=== PATIENT | male | born 1970 | race Caucasian/White ===

== ENCOUNTER 2018-05-04 11:22 | Outpatient (CLI) | payer OTHER ==
[~2018-05-04] VITALS: Ht 177.8 cm; Wt 166.0 kg
[2018-05-04 11:34] VITALS: BP 135/89
[2018-05-04] MEDS ORDERED: CYAN100088 PO (12:04)
[2018-05-04] MEDS ORDERED: CHOL10008 PO (12:04)
[2018-05-04] MEDS ORDERED: VENL150T PO (12:04)
[2018-05-04] MEDS ORDERED: PANT40TA3 PO (12:04)
[2018-05-04] MEDS ORDERED: LISI-552 PO (12:04)
[2018-05-04] MEDS ORDERED: CARV6.252 PO (12:04)
== END 2018-05-04 11:50 | disposition home or self-care (01) ==
LOC: PREOP 11:22
PROVIDERS: ATTEND Orthopaedic Surgery Orthopaedic Trauma
DX: Z01.818 Encounter for other preprocedural examination (principal)
CPT/HCPCS: 87081

== ENCOUNTER 2018-05-07 07:11 | Inpatient (IN) | payer OTHER ==
[~2018-05-07] VITALS: Ht 177.8 cm; Wt 166.0 kg
[~2018-05-07 07:11] MED LIST: CARV6.252 PO; CHOL10008 PO; CYAN100088 PO; LISI-552 PO; PANT40TA3 PO; VENL150T PO
[2018-05-07 07:25] VITALS: BP 132/92
[2018-05-07] MEDS ORDERED: ceFAZolin 2 GM IV Premixed 50 ML IV ONE (07:30)
[2018-05-07] MEDS: LACTATED RINGERS 1,000 ML IV PRN ×2 (07:30→10:30)
[2018-05-07] MEDS ORDERED: LIDOCAINE PF 2% 5 ML (XYLOCAINE) VIAL ONE ×2 (08:22→13:11)
[2018-05-07] MEDS ORDERED: DEXMEDETOMIDINE 200 MCG/2 ML (PRECEDEX) VIAL IV ONE ×2 (08:22→13:11)
[2018-05-07] MEDS ORDERED: ONDANSETRON 4 MG/2 ML (SDV) Z0FRAN ONE (08:22)
[2018-05-07] MEDS ORDERED: DEXAMETHASONE 10 MG/ML (DECADRON) 1 ML VIAL ONE ×2 (08:22→12:42)
[2018-05-07] MEDS ORDERED: SUCCINYLCHOLINE INJ 100 MG/5 ML SYR ONE (08:22)
[2018-05-07] MEDS ORDERED: proPOfol 200 MG/20 ML (DIPRIVAN) VIAL IV ONE (08:22)
[2018-05-07] MEDS ORDERED: fentaNYL INJECTION 100 MCG/2 ML AMP ONE ×4 (08:22→12:41)
[2018-05-07] MEDS ORDERED: MIDAZOLAM 2 MG/2 ML (VERSED) VIAL ONE (08:23)
[2018-05-07] MEDS ORDERED: SEVOFLURANE (ULTANE) 15 ML INHAL SOLN ONE ×15 (08:35→12:52)
[2018-05-07] MEDS ORDERED: ROCURONIUM 10 MG/ML 5 ML SYRINGE IV ONE (08:35)
[2018-05-07] MEDS ORDERED: BUP/EPI 0.5% 1:200,000 (SENSORCAINE) 30 ML VIAL ONE (09:22)
[2018-05-07] MEDS ORDERED: methylPREDNISolone 40 MG/ML (DEPO MEDROL) VIAL ONE (12:01)
[2018-05-07] MEDS ORDERED: hydrALAZINE (APESOLINE) 20 MG/ML VIAL ONE (12:42)
[2018-05-07] MEDS ORDERED: D5 LR IV SOLUTION 1,000 ML IV SCH (13:15)
[2018-05-07] MEDS ORDERED: morphine INJ 10 MG/ML 1ML (SYR OR VIAL) IM PRN (13:15)
[2018-05-07] MEDS ORDERED: PROMETHAZINE 25 MG (PHENERGAN) TAB PO PRN (13:15)
[2018-05-07] MEDS ORDERED: ONDANSETRON 4 MG/2 ML (SDV) Z0FRAN IV PRN (13:15)
[2018-05-07] MEDS ORDERED: BISACODYL 5 MG (DULCOLAX) TABLET PO PRN (13:15)
[2018-05-07] MEDS ORDERED: ACETAMINOPHEN 325 MG TABLET PO PRN (13:15)
[2018-05-07] MEDS ORDERED: DOCUSATE SODIUM 100 MG (COLACE) CAP PO PRN (13:15)
--- NOTE | 2018-05-07 13:26 | Progress Note-Post Operative ---
Post-Operative Progess Note Surgeon (s)/Woodworking Machine Feeder (s) Surgeon BELLE MILLER DO Woodworking Machine Feeder: Karthikeyan Michael PA-C Pre-Operative Diagnosis Cervical spondylosis C5-6, C6-7 with radiculopathy Post-Operative Diagnosis Same Procedure & Operative Findings Date of Procedure 05/07/18 Procedure Performed/Findings C5-6, C6-7 ACDF Anesthesia Type GETA Estimated Blood Loss Estimated blood loss (mL): 150 mL Specimens/Packing Specimens Removed None Packing: Drains: 7 F JPD Complications: None Disposition: stable, to PACU BELLE MILLER DO May 07, 2018 13:26
[2018-05-07] MEDS ORDERED: morphine INJ 10 MG/ML 1ML (SYR OR VIAL) IVP ONE (13:30)
[2018-05-07] MEDS ORDERED: ONDANSETRON 4 MG/2 ML (SDV) Z0FRAN IVP PRN (13:30)
[2018-05-07] MEDS ORDERED: HYDROmorphone 2 MG/ML VIAL (DILAUDID) IV ONE (13:30)
--- NOTE | 2018-05-07 13:43 | Diagnostic Imaging Report ---
Indication: Fluoroscopy during cervical spine surgery. Fluoroscopy was provided in the OR during cervical surgery. 36 seconds of fluoroscopy was utilized. Crosstable lateral view does show localizing needle anteriorly at approximately C5-6 level. There has been placement of anterior plate and numerous screws. Impression: Fluoroscopy during ACDF. Dictated by: Dictated on workstation # [id number]
[2018-05-07] MEDS ORDERED: morphine INJ 10 MG/ML 1ML (SYR OR VIAL) ONE (14:02)
--- NOTE | 2018-05-07 14:27 | Anesthesia-General Post-Op ---
General Patient Condition Mental Status/LOC: Same as Preop Cardiovascular: Satisfactory Nausea/Vomiting: Absent Respiratory: Satisfactory Pain: Controlled Complications: Absent Post Op Complications Complications None Follow Up Care/Instructions Patient Instructions None needed. Anesthesia/Patient Condition Patient Condition Patient is doing well, no complaints, stable vital signs, no apparent adverse anesthesia problems. No complications reported per nursing. LA ZULUAGA CRNA May 07, 2018 14:26
[2018-05-07] MEDS ORDERED: VENL150C98 PO (15:23)
[2018-05-07] MEDS ORDERED: CHOL10007 PO (15:23)
[2018-05-07] MEDS ORDERED: morphine INJ 4 MG/ML 1 ML (VIAL/SYRINGE) IV PRN (15:45)
[2018-05-07] MEDS: D5 LR IV SOLUTION 1,000 ML IV SCH (15:45)
[2018-05-07 16:37] VITALS: BP 100/59
[2018-05-07] MEDS: CYCLOBENZAPRINE 10 MG (FLEXERIL) TAB PO PRN (17:00)
[2018-05-07] MEDS: ceFAZolin INJECTION 3,000 MG in NS (IVPB) 50 ML IV SCH (17:00)
[2018-05-07] MEDS: DEXAMETHASONE 4 MG/ML SDV (DECADRON) IV SCH (17:46)
[2018-05-07] MEDS ORDERED: FLU QUADRIvalent (5+ YOA) 2018-2019 (AFLURIA) 0.5 ML IM ONE (18:30)
[2018-05-07 19:14] VITALS: BP 110/68
[2018-05-07 19:17] VITALS: BP 110/68
[2018-05-07] MEDS: oxyCODONE/APAP 5/325MG (PERCOCET 5) TABLET PO PRN (22:18)
[2018-05-08] MEDS: DEXAMETHASONE 4 MG/ML SDV (DECADRON) IV SCH ×3 (00:01→12:45)
[2018-05-08] MEDS: D5 LR IV SOLUTION 1,000 ML IV SCH ×2 (00:05→16:44)
[2018-05-08] MEDS: ceFAZolin INJECTION 3,000 MG in NS (IVPB) 50 ML IV SCH ×2 (00:17→09:25)
[2018-05-08 00:19] VITALS: BP 137/71
[2018-05-08 04:08] VITALS: BP 134/70
[2018-05-08] MEDS: MULTIVIT W/MINERALS TAB (THERAGRAN M) PO SCH (06:26)
[2018-05-08 08:00] VITALS: BP 135/79
--- NOTE | 2018-05-08 08:03 | Progress Note-Standard ---
Standard Progress Note Progress Notes/Assess & Plan Date Seen by a Provider: May 08, 2018 Time Seen by a Provider: 07:57 Progress/Assessment & Plan Pt LUIZ, pain controlled, c/o some numbness/parasthesias ulnar aspect of Left hand and medial aspect of LLE, otherwise doing well, no overnight issues to report. VSSAF Labs stable Exam: decreased SLT ulnar N distribution L hand/L4 distribution LLE, otherwise SLT b/ l UE/LE 5/5 motor function b/l UE/LE, CN II-XII grossly intact C-collar in place, neck supple, dressing c/d/i, good phonation, trachea midline CV: RRR, good peripheral pulses Abd: soft/NT all 4 quadrants, no distention Pulm: breathing well on RA, no use of accessory muscles A/P: S/P C5-6, C6-7 ACDF, POD #1 sensory changes secondary to OR positioning; I encouraged the patient that this will resolve. Mobilize OOB with PT/OT, cervical fusion protocol C-collar at all times Current pain control regimen Bowel regimen ISB/SCDs Soft diet D/C planning: will plan to d/c home later today vs tomorrow morning Questions answered Instructions given BELLE MILLER DO May 08, 2018 08:03
[2018-05-08] MEDS ORDERED: OXYC1TAB87 PO (08:06)
[2018-05-08] MEDS ORDERED: CYCL10TA9 PO (08:06)
--- NOTE | 2018-05-08 08:38 | Physical Therapy Evaluation ---
PT Evaluation-General Medical Diagnosis Admission Date May 07, 2018 at 07:11 Medical Diagnosis: cervical spondylosis Onset Date: May 07, 2018 Therapy Diagnosis Therapy Diagnosis: debility Height/Weight Height (Feet): 5 Height (Inches): 10.00 Weight (Pounds): 366 Weight (Ounces): 0.0 Precautions Precautions/Isolations: Standard Precautions Weight Bear Status Right Lower Extremity: Right Full Weight Bearing Left Lower Extremity: Left Full Weight Bearing Referral Physician: Guillermo Reason for Referral: Evaluation/Treatment Medical History Pertinent Medical History: HTN Current History s/p C5-6,C6-7 ACDF Reviewed History: Yes Social History Home: Single Level Current Living Status: Spouse Prior/Core FIM Prior Level of Function Functional [place] Measure 0=Not Assessed/NA 4=Minimal Assistance 1=Total Assistance 5=Supervision or Setup 2=Maximal Assistance 6=Modified [place] 3=Moderate Assistance 7=Complete IndependenceIRFPAI Quality Coding Scale 6 Independent with activity with or without an assistive device 5 Patient requires set up or clean up by helper. Patient completes activity by themselves 4 Supervision or touching assist (CGA). [place] provide cues , steadying assist 3 The helper provides less than half the effort to complete the activity 2 The helper provides more than half the effort to complete the activity 1 Dependent. The helper does all the effort to complete an activity 7 Patient refused to complete or attempt activity 9 The patient did not perform the activity before the current illness or injury 88 Not attempted due to Medical conditions or safety concerns Bed Mobility: 7 Transfers (B,C,W/C) (FIM): 7 Gait: 7 PT Evaluation-Current Subjective Patient c/o left UE numbness and left LE numbness at the knee. Dr. Li in for assessment. Pain Numeric Pain Scale: 5-Moderate Pain Location: Incisional Location Body Site: Neck Pain Description: Acute Objective Patient Orientation: Normal For Age Attachments: Drains ROM/Strength ROM Lower Extremities bilateral LE WFL Strength Lower Extremities 5/5 grossly bilaterally Integumentary/Posture Integumentary refer to nursing notes Transfers Functional [place] Measure 0=Not Assessed/NA 4=Minimal Assistance 1=Total Assistance 5=Supervision or Setup 2=Maximal Assistance 6=Modified [place] 3=Moderate Assistance 7=Complete [place] Transfers (B, C, W/C) (FIM): 6 Scootin Rollin Supine to/from Sit: 6 Sit to/from Stand: 6 Gait Mode of Locomotion: Walk Anticipated Mode of Locomotion: Walk Gait (FIM): 6 Distance (FIM): 3=150 ft Distance: 225' Gait Level of Assist: 6 Gait Assistive Device: FWW Comments/Gait Description steady, safe, functional (PT instructed patient, family and RN to ambulate PRN in hallway) Balance Sitting Static: Normal Sitting Dynamic: Normal Standing Static: Normal Standing Dynamic: Normal Assessment/Needs 47 y.o. male, is currently at [facility] with gross motor skills. Plan dismissal to home on this date per Dr. Li. PT to dismiss patient from services due to current, safe, LOF. Rehab Potential: Good PT Plan Treatment/Plan Treatment Plan: Discontinue PT, goals met Treatment Plan: Other Treatment Duration: May 08, 2018 Frequency: 1 time per week Estimated Hrs Per Day: .5 hour per day Patient and/or Family Agrees t: Yes Discharge Recommendations Therapy D/C Recommendations: Home w/ Family Support Time/GCodes Time In: 741 Time Out: 800 Total Billed Treatment Time: 19 Total Billed Treatment 1 visit [facility] 19 min G Codes Necessary: No VIJAY BENDER PT May 08, 2018 08:38
[2018-05-08] MEDS ORDERED: MILK OF MAGNESIA 400 MG/5 ML 30 ML UDC PO SCH (09:00)
--- NOTE | 2018-05-08 09:03 | Occupational Therapy Eval ---
OT Evaluation-General/PLF Medical Diagnosis Admission Date May 07, 2018 at 07:11 Medical Diagnosis: cervical spondylosis Onset Date: May 07, 2018 Therapy Diagnosis Therapy Diagnosis: Debilty Height/Weight Height (Feet): 5 Height (Inches): 10.00 Weight (Pounds): 366 Weight (Ounces): 0.0 Precautions Precautions/Isolations: Standard Precautions Weight Bear Status Weight Bearing Restriction: Weight Bearing/Tolerated Referral Physician: Guillermo Referral Reason: Evaluation/Treatment Medical History Pertinent Medical History: HTN Additional Medical History s/p C5-6, C6-7 ACDF Social History Home: Single Level Current Living Status: Spouse ADL-Prior Level of Function Functional [place] Measure 0=Not Assessed/NA 4=Minimal Assistance 1=Total Assistance 5=Supervision or Setup 2=Maximal Assistance 6=Modified [place] 3=Moderate Assistance 7=Complete [place] ADL PLOF Comments Pt reports that he was totally independent with all self cares and IADLs prior to recent surgery. Self Care Self Care: (Code the patient's need for assistance with bathing, dressing, using the toilet, or eating prior to the current illness, exacerbation, or injury.) Functional Cognition Functional Cognition: (Code the patient's need for assistance with planning regular tasks, such as shopping or remembering to take medicaiton prior to the current illness, exacerbation, or injury.) Drive Self: Yes OT Current Status Subjective Pt alert and oriented, agreeable to OT evaluation. Pt reports that he will be discharging to home with his significant other either today or tomorrow. Pain Numeric Pain Scale: 4 Location: Incisional Location Body Site: Neck Pain Description: Dull Mental Status/Objective Patient Orientation: Normal For Age Attachments: Drains, Rodas Catheter Current Upper Extremity ROM WFL Upper Extremity Coordination BUE strength and gross/fine motor coordination intact. Pt reports some numbness on ulnar aspect of left hand, likely related to recent cervical surgery. Did not assess pt's UE strength due to cervical precautions following spinal surgery. ADL-Treatment Functional [place] Measure 0=Not Assessed/NA 4=Minimal Assistance 1=Total Assistance 5=Supervision or Setup 2=Maximal Assistance 6=Modified [place] 3=Moderate Assistance 7=Complete IndependenceIRFPAI Quality Coding Scale 6 Independent with activity with or without an assistive device 5 Patient requires set up or clean up by helper. Patient completes activity by themselves 4 Supervision or touching assist (CGA). [place] provide cues , steadying assist 3 The helper provides less than half the effort to complete the activity 2 The helper provides more than half the effort to complete the activity 1 Dependent. The helper does all the effort to complete an activity 7 Patient refused to complete or attempt activity 9 The patient did not perform the activity before the current illness or injury 88 Not attempted due to Medical conditions or safety concerns Upper Body Dressing (FIM): 5 Lower Body Dressing (FIM): 5 Toileting (FIM): 5 Toilet/Commode Transfer (FIM): 5 Education OT Patient Education: Correct positioning, Energy conservation, Home exercise program, Modified ADL techniques, Reviewed precautions, Safety issues, Transfer techniques, Use of adapted equipment Teaching Recipient: Patient Teaching Methods: Demonstration, Discussion Response to Teaching: Verbalize Understanding, Return Demonstration OT Short Term Goals Short Term Goals Time Frame: May 08, 2018 Upper Body Dressing(FIM): 5 Lower Body Dressing(FIM): 5 Toileting(FIM): 5 Transfers (B,C,W/C) (FIM): 5 Toilet/Commode Transfer(FIM): 5 1=Demonstrate adherence to instructed precautions during ADL tasks. 2=Patient will verbalize/demonstrate understanding of assistive devices/ modifications for ADL. 3=Patient will improve strength/tolerance for activity to enable patient to perform ADL's. OT Crew Supervisor Goals Skilled Nursing Goals Time Frame: May 08, 2018 Upper Body Dressing(FIM): 5 1=Demonstrate adherence to instructed precautions during ADL tasks. 2=Patient will verbalize/demonstrate understanding of assistive devices/ modifications for ADL. 3=Patient will improve strength/tolerance for activity to enable patient to perform ADL's. OT Education/Plan Problem List/Assessment Assessment: No Skilled OT Needs ID'd Discharge Recommendations Plan/Recommendations: Discharge/Goals Met Therapy D/C Recommendations: 24 hr Supervision, Home w/ Family Support Equpiment Recommendations-D/C: Account Development Representative, Sock Aide, Dressing Stick Treatment Plan/Plan of Care Treatment,Training & Education: Yes Patient would benefit from OT for education, treatment and training to promote independence in ADL's, mobility, safety and/or upper extremity function for ADL' s. Treatment Duration: May 08, 2018 Frequency: 1 time per week Estimated Hrs Per Day: .5 hour per day Rehab Potential: Good Time/GCodes Start Time: 08:40 Stop Time: 09:10 Total Time Billed (hr/min): 30 Billed Treatment Time EVM1, ADL1 JUSTINE GIMENEZ OT May 08, 2018 09:02
[2018-05-08] MEDS: CYCLOBENZAPRINE 10 MG (FLEXERIL) TAB PO PRN (12:45)
[2018-05-08 16:40] VITALS: BP 133/69
[2018-05-08] MEDS: oxyCODONE/APAP 5/325MG (PERCOCET 5) TABLET PO PRN (22:03)
[2018-05-09] VITALS: BP 136/74
[2018-05-09] MEDS: MULTIVIT W/MINERALS TAB (THERAGRAN M) PO SCH (06:24)
[2018-05-09 08:00] VITALS: BP 155/91
--- NOTE | 2018-05-09 10:03 | Progress Note-Standard ---
Standard Progress Note Progress Notes/Assess & Plan Date Seen by a Provider: May 09, 2018 Time Seen by a Provider: 10:00 Progress/Assessment & Plan Pt LUIZ, pain controlled, numbness/parasthesias ulnar aspect of Left hand and medial aspect of LLE nearly resolved, no overnight issues to report, doing well without complaints. VSSAF Labs stable Exam: improved SLT ulnar N distribution L hand, otherwise SLT b/l UE/LE 5/5 motor function b/l UE/LE, CN II-XII grossly intact C-collar in place, neck supple, dressing c/d/i, good phonation, trachea midline CV: RRR, good peripheral pulses Abd: soft/NT all 4 quadrants, no distention Pulm: breathing well on RA, no use of accessory muscles A/P: S/P C5-6, C6-7 ACDF, POD #2 Orthopedically stable Mobilize OOB with PT/OT, cervical fusion protocol C-collar at all times Current pain control regimen Bowel regimen Remove JPD/change dressing today per nursing ISB/SCDs D/C planning: d/c to home today Questions answered Instructions given F/U outpatient in 2 weeks BELLE MILLER DO May 09, 2018 10:03
--- NOTE | 2018-05-09 10:09 | Discharge Summary ---
Diagnosis/Chief Complaint Date of Admission May 07, 2018 at 07:11 Date of Discharge 05/09/2018 Discharge Time: 10:04 Admission Diagnosis Admission Diagnosis Cervical spondylosis with radiculopathy Discharge Diagnosis Same Reason Hospital Visit Surgery Discharge Summary Hospital Course Hospital Course Patient a 47 y/o RHD male with h/o chronic axial neck pain and progressive radiculopathy of the LUE. He was admitted to the hospital on 05/07/2018 and underwent successful C5-6, C6-7 ACDF. He tolerated the procedure well without complications. He was later admitted to the floor in stable condition. He received the appropriate antibiotic/VTE prophylaxis and standard pain control protocol. He mobilized well OOB with PT/OT. His labs/vitals remained stable throughout his hospital course. He remained n/v/i throughout the hospital course as well. He completed his hospital course without adverse events. He was discharged to home in medically and orthopedically stable condition. He received specific post-discharge instructions. All of his questions were answered prior to discharge. Procedures C5-6, C6-7 ACDF Discharge Physical Examination Allergies: Coded Allergies: No Known Drug Allergies (Unverified , 05/04/18) Vitals & I&Os Vital Signs Date Time Temp Pulse Resp B/P (MAP) Pulse Ox O2 Delivery O2 Flow Rate FiO2 05/09/18 08:00 97.6 90 20 155/91 (112) 96 Room Air 05/08/18 08:12 3.00 General Appearance: Alert, Oriented X3, No Acute Distress HEENT: Atraumatic, PERRLA, EOMI, Mucous Memb Moist/[place] Respiratory: Normal Air Movement Cardiovascular: Regular Rate Abdominal: Soft, No Tenderness Extremities: No Edema, Normal Pulses, No Tenderness/Swelling Skin: No Rashes, No Significant Lesion Neuro: Normal Gait, Normal Speech, Strength at 5/5 X4 Ext, Normal Tone, Sensation Intact, Cranial Nerves 3-12 NL, Reflexes 2+ Psych/Mental Status: Mental Status NL Discussion & Recommendations No bending/twisting/overhead activities. No lifting more than 10-15 lbs. May shower but no baths/soaking tubs. Wear C-collar as instructed. Follow up outpatient in 2 weeks. Call the office with additional questions/concerns. Discharge Home Medications Reviewed and agree with Discharge Medication list on patient's Discharge Instruction sheet Condition at Discharge Stable Instructions to Patient/Family Please see electronic discharge instructions given to patient. BELLE MILLER DO May 09, 2018 10:09
--- NOTE | 2018-05-09 10:14 | Discharge Inst-Surgical ---
Discharge Inst-Surgical Depart Medication/Instructions New, Converted or Re-Newed RX: RX on Chart Consults/Follow Up Goal/Follow Up Appt.: Follow up outpatient in 2 weeks. Please call the office to confirm your appoitment. Activity Activity as Tolerated: Yes No bending/twisting or overhead activities No lifting more than 10-15 lbs C-collar as instructed Activity Instructions: Avoid Pulling & Pushing, Avoid Stress to Incision Do Not Lift Over _ Pounds: 10 Driving Instructions: No Driving/Refer to Dr. Shaw Discharge Diet: No Restrictions Skin/Wound Care Infection Signs and Symptoms: Increased Redness, Foul Odor of Wound, Increased Drainage, Increased Swelling, Temperature Above 101 F Bathing Instructions: Shower Steristrips: Leave Steristrips Intact BELLE MILLER DO May 09, 2018 10:14
[2018-05-09 11:17] VITALS: BP 155/91
--- NOTE | 2018-05-16 15:21 | OPERATIVE REPORT ---
DATE OF SERVICE: 05/07/2018 PREPROCEDURE DIAGNOSES: 1. Osseous and soft tissue cervical spinal stenosis. 2. Cervical spondylosis with radiculopathy. POSTPROCEDURE DIAGNOSES: 1. Osseous and soft tissue cervical spinal stenosis. 2. Cervical spondylosis with radiculopathy. PROCEDURE PERFORMED: 1. Diskectomies at C5-6 and C6-7. 2. Application of anterior titanium interbody devices at C5-6 and C6-7. 3. Anterior cervical fusion C5-6, C6-7. 4. Anterior internal fixation C5-6, and C6-7. 5. Use of local bone autograft. 6. Use of human allograft. 7. Use of continuous neural monitoring for SSEPs, MEPs, and EMGs. IMPLANTS USED: 1. 4Web cervical interbody cages, size 17 mm x 14 mm x 8 mm with 7 degree lordosis at C5-6 and size 17 mm x 14 mm x 8 mm with zero degrees of lordosis at C6-7. 2. K2M [place] anterior cervical plate size 46 mm. ATTENDING SURGEON: Dr. Belle Li APARTMENT COMMUNITY MANAGER: Karthikeyan Michael PA-C; Mr. Michael's assistance was required secondary to the complexity of the case, to hold the necessary retractors protecting vital neurovascular structures and to increase the efficiency and efficacy of the case; this case was not possible without the presence of an entry level assistant manager. ANESTHESIA: General endotracheal. ESTIMATED BLOOD LOSS: 50 mL. COMPLICATIONS: None. SPECIMENS: None. DRAINS: A 7-[place] DANNY drain. BRIEF HISTORY/INDICATIONS: The patient is a very pleasant 47-year-old right-hand dominant male with a history of chronic progressive axial neck pain and left upper extremity radiculopathy. Imaging studies that were reviewed preoperatively including plain radiographs and a cervical MRI demonstrated severe cervical spondylosis at C5-6 and C6-7 as well as severe left-sided neural foraminal stenosis. On exam, preoperatively the patient did have both sensory and motor deficits in the C6 and C7 dermatomal distributions. I discussed the patient's condition in detail preoperatively including the natural history, prognosis, and treatment options. Given that his condition had become severe, progressive, and debilitating, and had failed to respond appropriately to conservative measures, I had recommended surgery. We discussed the surgical plan preoperatively in detail including the potential risks, benefits, potential complications, expected outcomes, and indications. Those risks that were discussed included significant bleeding, infection, spinal fluid leaks, damage to surrounding neurovascular and soft tissue structures, paralysis, potential serious reactions to anesthesia, pseudarthrosis, and potential need for secondary surgical procedures. The patient gave informed written consent to proceed as planned after all of his questions were answered to his satisfaction. PROCEDURE NOTE: After correctly identifying the patient as Mr. Mauricio Sanchez in the preoperative holding area and after his operative site was appropriately marked, he was transferred to the operating room. Once in the operating room, he had successful induction of General endotracheal anesthesia and he was transferred to a radiolucent OR table and placed in the supine position. All bony prominences were meticulously padded. Soft bump was placed underneath the scapula to maintain neutral rotation of the cervical spine. Both shoulders were taped distally to facilitate lateral C-arm imaging. The operative site was then prepped and draped in the routine sterile fashion. Prior to beginning the case, we completed an operating room timeout with all parties involved in the case and agreement and verified appropriate infusion of prophylactic antibiotics. Using a lateral C-arm image and a #4 Matheson elevator, the C5-6 and C6-7 disk spaces were localized and marked out on the skin with a sterile marking pen. Standard left-sided anterior cervical approach was then completed. A 10 blade scalpel was used to make an incision incising through the skin and subcutaneous tissue. Blunt Metzenbaum scissors were then used to divide the platysma muscle longitudinally just medial to the medial border of the sternocleidomastoid. Blunt digital dissection was then used to dissect medial to the carotid sheath until the anterior cervical spine was palpated. Hand-held Cloward retractor was then used to retract the trachea and esophagus laterally, so as to expose the prevertebral fascia. The prevertebral fascia was then released using blunt Metzenbaum scissors to expose the anterior cervical spine. A disk marker was then placed into the C5-6 disk space and then a lateral C-arm image was used to confirm that indeed the marker was in the C5-6 disk space. We began the procedure by starting at the C6-7 level and working cranially. The longus colli muscles were released bilaterally to the level of the uncovertebral joints from C5-C7. Self-retaining Shadow-Line retractor was then placed into the wound to retract and protect the soft tissues. 14 mm [place] pins were then placed into the vertebral bodies of C6 and C7 and then distraction was created across the C6-7 disk space. A 15 blade scalpel was then used to make an annulotomy in the C6-7 disk and then complete diskectomy was then completed using high speed bur as well as a series of curettes, pituitary rongeurs, and Kerrison rongeurs. Posterior osteophytes were then removed with a high speed mayank and Kerrison rongeurs. Posterior longitudinal ligament was then completely released and then bilateral foraminotomies were completed with a high speed bur and #2 Kerrison rongeurs. Adequate foraminotomy was confirmed with use of a nerve hook that was freely mobile in and out of the foramen bilaterally. We then began trialing for the interbody implant to the final size. Appropriate implant was selected. The final interbody implant was then packed full of local bone autograft and human allograft. The endplates were then lightly decorticated with high speed bur to bleeding bone all the while protecting the integrity of the bony endplates. The final implant was then tapped into the C6-7 disc space into the appropriate position using lateral C-arm guidance, just to complete the interbody fusion portion of the procedure at C6-7. We then turned our attention to the C5-6 disk space. [place] pins were repositioned and then distraction was created across the C5-6 disk space. A #15 blade scalpel was then used to make an annulotomy in the C5-6 disk and then complete diskectomy was completed using a high speed bur as well as a series of curettes, Pituitary and Kerrison rongeurs. Posterior osteophytes were removed with high speed bur and Kerrison rongeurs. Posterior longitudinal ligament was completely released and then bilateral foraminotomies were completed using high speed bur and #2 Kerrison rongeurs. Adequate foraminotomy was confirmed with use of a nerve hook that was freely mobile in and out of the foramen bilaterally. We then trialled for the interbody implant until this appropriate size implant was selected. The final implant was then packed full of local bone autograft and human allograft, the endplates were then lightly decorticated with high speed bur and then the final implant was inserted into the C5-C6 disk space into the appropriate position under lateral C-arm fluoroscopic guidance. This completed the interbody fusion portion of the case at C5-6. Anterior internal fixation was then applied with use of the K2M [place] anterior cervical plate and screws in the standard fashion. This was also completed under lateral C-arm fluoroscopic guidance. Once anterior internal fixation was applied, we confirmed that there was no soft tissue impingement of the plate. A final lateral and AP C-arm images confirmed that all the hardware and instrumentation was in the appropriate position and that acceptable alignment of the cervical spine was maintained. The wound was then irrigated with copious amounts of sterile saline, meticulous hemostasis was achieved, and then the 7-[place] DANNY drain was then placed into the wound. Standard closure was then completed using 3-0 Vicryl for the platysma muscle, 3-0 Vicryl for the subcutaneous tissue, and then a running 4-0 subcuticular Monocryl stitch and Steri-Strips for the skin. The patient had a sterile dressing applied followed by a rigid cervical orthosis. He was then awakened and extubated in the operating room without incident and then transferred to the PACU in stable condition. He tolerated the procedure quite well without complications. All counts were correct at the end of the case. Job ID: [id number] DocumentID: [id number] Dictated Date: 05/16/2018 10:16:00 [employer] Web Developer Date: 05/16/2018 15:20:34 Dictated By: BELLE LI
== END 2018-05-09 11:00 | disposition home or self-care (01) | DRG 472 ==
LOC: 4TH 07:11 → SURG 07:12 → 4TH 14:45
PROVIDERS: ADMIT Orthopaedic Surgery Orthopaedic Trauma; ATTEND Orthopaedic Surgery Orthopaedic Trauma
PROC: 0RT30ZZ Resection of Cervical Vertebral Disc, Open Approach (ICD-10-PCS; 2018-05-07)
PROC: 0RG2070 Fusion of 2 or more Cervical Vertebral Joints with Autologous Tissue Substitute, Anterior Approach, Anterior Column, Open Approach (ICD-10-PCS; principal; 2018-05-07 08:45)
DX: M47.22 Other spondylosis with radiculopathy, cervical region (principal); I42.9 Cardiomyopathy, unspecified; I10 Essential (primary) hypertension; G47.33 Obstructive sleep apnea (adult) (pediatric); E66.01 Morbid (severe) obesity due to excess calories; Z68.43 Body mass index [BMI] 50.0-59.9, adult
CPT/HCPCS: 86850; 86900; 86901; 94664